=== PATIENT | female | born 1990 | race Caucasian/White ===

== ENCOUNTER 2016-10-28 14:17 | Emergency (ER) | payer SELFPAY ==
[~2016-10-28] VITALS: Ht 170.2 cm; Wt 56.0 kg
[~2016-10-28 14:17] MED LIST: AMIT25TA PO; DICY10CA53 PO; ONDA4TAB10 PO; OXYC-302 PO; PROM25TA10 PO; PROM50SU6 PO; TRAM50TA2 PO
[2016-10-28] MEDS ORDERED: SODIUM CHLORIDE FLUSH 10ML SYR IVF ONE (15:30)
[2016-10-28] MEDS ORDERED: ONDANSETRON 2MG/ML, 2ML IVPush ONE (15:30)
[2016-10-28] MEDS ORDERED: SODIUM CHLORIDE 0.9% 1,000ML IVBOLUS ONE (15:30)
[2016-10-28] MEDS ORDERED: HYDROmorphone 1 MG/ML, 1ML ONE ×2 (15:47→17:06)
[2016-10-28] MEDS ORDERED: ONDANSETRON 2MG/ML, 2ML ONE (15:47)
[2016-10-28 15:56] LABS: HEMOGLOBIN 13.6 g/dL (11.7-16.4)
[2016-10-28] MEDS: HYDROmorphone 1 MG/ML, 1ML IVPush PRN ×2 (16:05→17:12)
[2016-10-28 16:11] LABS: ASPARTATE AMINO TRANSFERASE 9 U/L (15-37); BLOOD UREA NITROGEN 5 mg/dL (7-18)
[2016-10-28 16:36] LABS: PATH.CAST-FLAG NOT PRESENT; SPERM-FLAG NOT PRESENT; SRC-FLAG NOT PRESENT; XTAL-FLAG NOT PRESENT; YLC-FLAG NOT PRESENT
[2016-10-28] MEDS ORDERED: OMNIPAQUE 350 MG/ML, 100ML BOTTLE ONE (16:51)
[2016-10-28 17:12] LABS: HCG UR OBC PASS
[2016-10-28] MEDS ORDERED: METHYLNALTREXONE 12 MG/0.6 ML SQ ONE (17:30)
[2016-10-28] MEDS ORDERED: DIAZEPAM 5 MG/ML, 2ML IV ONE (17:30)
[2016-10-28] MEDS ORDERED: METOCLOPRAMIDE 5 MG/ML, 2ML ONE (17:42)
[2016-10-28] MEDS ORDERED: METOCLOPRAMIDE 5 MG/ML, 2ML IVPush ONE (18:00)
[2016-10-28] MEDS ORDERED: DIAZEPAM 5 MG/ML, 2ML ONE (19:03)
[2016-10-28 19:35] VITALS: BP 99/59
== END 2016-10-28 19:37 | disposition home or self-care (01) ==
LOC: ED 14:51
DX: K59.00 Constipation, unspecified (principal); R10.84 Generalized abdominal pain; Z90.49 Acquired absence of other specified parts of digestive tract; Z88.6 Allergy status to analgesic agent; Z88.8 Allergy status to other drugs, medicaments and biological substances
CPT/HCPCS: 36415; 74177; 80053; 81001; 81025; 85025; 87086; 96361; 96372; 96374; 96375; 96376; 99285; J1170; J2405; J2765; J3360; J7030; Q9967

== ENCOUNTER 2016-11-20 14:28 | Emergency (ER) | payer MEDICAID ==
[~2016-11-20] VITALS: Ht 165.1 cm; Wt 51.7 kg
[~2016-11-20 14:28] MED LIST changes: +GABA800T2 PO; +HYOS0.127 PO; +NORT50CA PO
[2016-11-20] MEDS ORDERED: KETOROLAC 30 MG/1 ML IVPush ONE (15:30)
[2016-11-20] MEDS ORDERED: SODIUM CHLORIDE 0.9% 1,000ML IVBOLUS ONE (15:30)
[2016-11-20] MEDS ORDERED: DIAZEPAM 5 MG/ML, 2ML IV ONE (15:30)
[2016-11-20] MEDS ORDERED: SODIUM CHLORIDE FLUSH 10ML SYR IVF ONE (15:30)
[2016-11-20] MEDS ORDERED: KETOROLAC 30 MG/1 ML ONE (15:32)
[2016-11-20] MEDS ORDERED: DIAZEPAM 5 MG/ML, 2ML ONE (15:32)
[2016-11-20 15:50] LABS: ASPARTATE AMINO TRANSFERASE 16 U/L (15-37); BLOOD UREA NITROGEN 10 mg/dL (7-18)
[2016-11-20 17:19] VITALS: BP 98/63
== END 2016-11-20 17:22 | disposition home or self-care (01) ==
LOC: ED 15:02
DX: R10.84 Generalized abdominal pain (principal); G89.29 Other chronic pain; K59.00 Constipation, unspecified; Z90.49 Acquired absence of other specified parts of digestive tract
CPT/HCPCS: 36415; 74020; 80053; 83605; 83690; 85025; 96361; 96374; 96375; 99285; J1885; J3360; J7030

== ENCOUNTER → 2016-12-16 | Outpatient (CLI) | payer MEDICAID | END | disposition home or self-care (01) | LOC: CFH 08:24 | PROVIDERS: ATTEND Internal Medicine Gastroenterology | DX: R10.11 Right upper quadrant pain (principal); R10.13 Epigastric pain; Z90.49 Acquired absence of other specified parts of digestive tract | CPT/HCPCS: 93975 ==

== ENCOUNTER 2017-01-17 19:01 | Emergency (ER) | payer MEDICAID ==
[~2017-01-17] VITALS: Ht 160 cm; Wt 56.4 kg
[2017-01-17] MEDS ORDERED: PANTOPRAZOLE 40 MG IV IVPush ONE (20:00)
[2017-01-17] MEDS ORDERED: METOCLOPRAMIDE 5 MG/ML, 2ML IVPush ONE (20:00)
[2017-01-17] MEDS ORDERED: SODIUM CHLORIDE 0.9% 1,000ML IVBOLUS ONE ×2 (20:00→22:30)
[2017-01-17] MEDS ORDERED: FAMOTIDINE 20 MG/2 ML IVP ONE (20:00)
[2017-01-17] MEDS ORDERED: HYDROmorphone 1 MG/ML, 1ML IVPush ONE (20:00)
[2017-01-17] MEDS ORDERED: SODIUM CHLORIDE FLUSH 10ML SYR IVF ONE (20:00)
[2017-01-17] MEDS ORDERED: HYDROmorphone 1 MG/ML, 1ML ONE (20:05)
[2017-01-17] MEDS ORDERED: METOCLOPRAMIDE 5 MG/ML, 2ML ONE (20:06)
[2017-01-17] MEDS ORDERED: FAMOTIDINE 20 MG/2 ML ONE (20:06)
[2017-01-17] MEDS ORDERED: PANTOPRAZOLE 40 MG IV ONE (20:06)
[2017-01-17 20:27] LABS: ASPARTATE AMINO TRANSFERASE 40 U/L (15-37); BLOOD UREA NITROGEN 9 mg/dL (7-18)
[2017-01-17 21:53] LABS: HCG UR OBC PASS
[2017-01-17] MEDS ORDERED: ONDANSETRON 2MG/ML, 2ML ONE (23:55)
[2017-01-18] MEDS ORDERED: ONDANSETRON 2MG/ML, 2ML IVPush ONE
[2017-01-18 00:06] VITALS: BP 105/65
== END 2017-01-18 01:19 | disposition home or self-care (01) ==
LOC: ED 21:40
DX: R10.84 Generalized abdominal pain (principal); G89.29 Other chronic pain; R19.5 Other fecal abnormalities; R11.2 Nausea with vomiting, unspecified; Z90.49 Acquired absence of other specified parts of digestive tract; Z88.6 Allergy status to analgesic agent; Z88.8 Allergy status to other drugs, medicaments and biological substances
CPT/HCPCS: 36415; 80053; 81001; 81025; 83690; 85025; 85610; 85730; 87086; 96361; 96374; 96375; 99285; C9113; J1170; J2405; J2765; J7030; S0028

== ENCOUNTER 2017-03-12 16:04 | Emergency (ER) | payer MEDICAID ==
[~2017-03-12] VITALS: Ht 160 cm; Wt 55.4 kg
[2017-03-12 16:09] VITALS: BP 105/74
== END 2017-03-12 17:35 | disposition home or self-care (01) ==
LOC: ED 16:46
DX: S80.01XA Contusion of right knee, initial encounter (principal); Z90.49 Acquired absence of other specified parts of digestive tract; Z88.5 Allergy status to narcotic agent; W22.09XA Striking against other stationary object, initial encounter; Y93.89 Activity, other specified; Y92.89 Other specified places as the place of occurrence of the external cause; Y99.8 Other external cause status
CPT/HCPCS: 99284

== ENCOUNTER → 2018-03-04 | Outpatient (CLI) | payer MEDICAID ==
[~2018-03-04] MED LIST changes: +HYOS0.1268 PO; -HYOS0.127 PO; +SINCALIDE (KINEVAC) 5 MCG ONE
== END | disposition home or self-care (01) ==
LOC: PETCFH 08:12
PROVIDERS: ATTEND Internal Medicine Gastroenterology
DX: K83.4 Spasm of sphincter of Oddi (principal); Z88.5 Allergy status to narcotic agent; Z88.8 Allergy status to other drugs, medicaments and biological substances
CPT/HCPCS: 78226; A9537; J2805

== ENCOUNTER 2018-04-18 09:23 | Emergency (ER) | payer MEDICAID ==
[~2018-04-18] VITALS: Ht 160 cm; Wt 71.4 kg
[~2018-04-18 09:23] MED LIST changes: +PREG75CA PO; -SINCALIDE (KINEVAC) 5 MCG ONE
[2018-04-18 09:30] VITALS: BP 99/69
== END 2018-04-18 10:20 | disposition home or self-care (01) ==
LOC: ED 09:55
DX: H65.03 Acute serous otitis media, bilateral (principal); J06.9 Acute upper respiratory infection, unspecified; Z90.89 Acquired absence of other organs; Z90.49 Acquired absence of other specified parts of digestive tract
CPT/HCPCS: 99283

== ENCOUNTER 2018-05-06 15:02 | Emergency (ER) | payer MEDICAID, OTHER ==
[~2018-05-06] VITALS: Ht 160 cm; Wt 69.0 kg
[~2018-05-06 15:02] MED LIST changes: -NORT50CA PO; +NORT50CA52 PO
[2018-05-06 15:17] VITALS: BP 108/70
[2018-05-06] MEDS ORDERED: PREG200C PO (15:24)
[2018-05-06] MEDS ORDERED: ACETAMINOPHEN 500 MG TABLET ONE (15:45)
[2018-05-06] MEDS ORDERED: ACETAMINOPHEN 500 MG TABLET PO ONE (16:00)
== END 2018-05-06 16:33 | disposition home or self-care (01) ==
LOC: ED 16:18
DX: S50.01XA Contusion of right elbow, initial encounter (principal); Z88.5 Allergy status to narcotic agent; Z88.8 Allergy status to other drugs, medicaments and biological substances; Z90.49 Acquired absence of other specified parts of digestive tract; X58.XXXA Exposure to other specified factors, initial encounter; Y93.89 Activity, other specified; Y99.8 Other external cause status; Y92.009 Unspecified place in unspecified non-institutional (private) residence as the place of occurrence of the external cause
CPT/HCPCS: 99284

== ENCOUNTER 2018-05-27 09:53 | Emergency (ER) | payer OTHER ==
[~2018-05-27] VITALS: Ht 160 cm; Wt 69.7 kg
[~2018-05-27 09:53] MED LIST changes: +PREG200C PO
[2018-05-27 10:04] VITALS: BP 100/69
== END 2018-05-27 10:39 | disposition home or self-care (01) ==
LOC: ED 10:20
DX: K04.7 Periapical abscess without sinus (principal)
CPT/HCPCS: 99283

== ENCOUNTER 2018-10-12 16:39 | Emergency (ER) | payer MEDICAID ==
[~2018-10-12] VITALS: Ht 165.1 cm; Wt 70.2 kg
[~2018-10-12 16:39] MED LIST changes: -GABA800T2 PO; +GABA800T5 PO
[2018-10-12 16:40] VITALS: BP 113/81
[2018-10-12] MEDS ORDERED: ALBUTEROL/IPRATROPIUM 2.5MG/0.5MG, 3 ML NPPB ONE (17:30)
[2018-10-12] MEDS ORDERED: ALBUTEROL/IPRATROPIUM 2.5MG/0.5MG, 3 ML ONE (17:30)
--- NOTE | 2018-10-12 17:41 | NUR ---
COUGH 2 WEEKS. RT AT BEDSIDE GIVING TX. MEDICATED PER ORDERS
== END 2018-10-12 18:02 | disposition home or self-care (01) ==
LOC: ED 17:45
DX: J06.9 Acute upper respiratory infection, unspecified (principal)
CPT/HCPCS: 71046; 94640; 99283; J7512; J7620

== ENCOUNTER 2018-10-23 12:50 | Emergency (ER) | payer MEDICAID ==
[~2018-10-23] VITALS: Ht 165.1 cm; Wt 68.7 kg
[2018-10-23] MEDS ORDERED: SODIUM CHLORIDE FLUSH 10ML SYR IVF ONE (13:30)
--- NOTE | 2018-10-23 13:38 | NUR ---
PT STATES FIVE DAYS AGO SHE STARTED TO NOT BE ABLE TO HAVE SENSATION RIGHT ANKLE. PT ATTRIUBTES IT TO MAYBE HER SPINAL CORD STIMULATOR IS DISLODGED. PT HAS TOM FOR FOUR DAYS.
[2018-10-23 14:27] LABS: BASOPHILS # (AUTO) 0.02 x10^3/uL (0-0.1); BASOPHILS % (AUTO) 0 % (0-1); EOSINOPHILS # (AUTO) 0.22 x10^3/uL (0-0.4); EOSINOPHILS % (AUTO) 3 % (1-7); LYMPHOCYTES # (AUTO) 2.41 x10^3/uL (1-3.4); LYMPHOCYTES % (AUTO) 29 % (22-44); MD NO; MEAN CORPUSCULAR HEMOGLOBIN 29.6 pg (27.0-34.8); MEAN CORPUSCULAR HGB CONC 33.2 g/dL (32.4-35.8); MEAN PLATELET VOLUME 8.3 fL (7.4-10.4); MONOCYTES % (AUTO) 6 % (2-9); NEUTROPHILS # (AUTO) 5.04 x10^3/uL (1.8-6.8); NEUTROPHILS % (AUTO) 62 % (42-75); PLATELET COUNT 405 x10^3/uL (130-400); RED BLOOD COUNT 4.95 x10^6/uL (3.82-5.3); RED CELL DISTRIBUTION WIDTH 13.8 % (9.6-15.2)
[2018-10-23] MEDS ORDERED: HYDROmorphone 1 MG/ML, 1ML AMP IVPush ONE (14:30)
[2018-10-23] MEDS ORDERED: KETOROLAC 30 MG/1 ML IVPush ONE (14:30)
[2018-10-23] MEDS ORDERED: METOCLOPRAMIDE 5 MG/ML, 2ML IVPush ONE (14:30)
[2018-10-23 14:34] LABS: ALBUMIN 3.7 g/dL (3.4-5.0); ANION GAP 6 mmol/L (5-15); CALCIUM 9.2 mg/dL (8.5-10.1); CHLORIDE 107 mmol/L (98-107); CREATININE 0.67 mg/dL (0.55-1.02)
[2018-10-23] MEDS ORDERED: HYDROmorphone 1 MG/ML, 1ML AMP ONE (14:45)
[2018-10-23] MEDS ORDERED: METOCLOPRAMIDE 5 MG/ML, 2ML ONE (14:45)
--- NOTE | 2018-10-23 14:55 | NUR ---
MEDICATED FOR TOM
[2018-10-23] MEDS ORDERED: SODIUM CHLORIDE 0.9%, 500ML IVBOLUS ONE (15:00)
[2018-10-23] MEDS ORDERED: KETOROLAC 30 MG/1 ML ONE (15:15)
[2018-10-23 15:41] VITALS: BP 98/59
--- NOTE | 2018-10-23 15:42 | NUR ---
AMBULATED TO BATHROOM WITHOUT ASSISTANCE, STEADY GAIT
== END 2018-10-23 16:09 | disposition home or self-care (01) ==
LOC: ED 13:20
DX: R51 Headache (principal); Z90.89 Acquired absence of other organs; Z90.49 Acquired absence of other specified parts of digestive tract; Z88.8 Allergy status to other drugs, medicaments and biological substances; Z88.1 Allergy status to other antibiotic agents; Z88.5 Allergy status to narcotic agent
CPT/HCPCS: 36415; 72072; 72110; 80048; 82040; 84703; 85025; 96374; 96375; 99284; J1170; J1885; J2765; J7040

== ENCOUNTER 2019-05-23 10:27 | Emergency (ER) | payer MEDICAID ==
[~2019-05-23] VITALS: Ht 160 cm; Wt 88.0 kg
[~2019-05-23 10:27] MED LIST changes: +CYCL-259 PO; +OXYC-307 PO
[2019-05-23 10:30] VITALS: BP 119/75
[2019-05-23] MEDS ORDERED: LIDOCAINE-MPF 1%, 5ML ONE ×2 (10:55→11:20)
[2019-05-23] MEDS ORDERED: LIDOCAINE-MPF 1%, 5ML INFIL ONE (12:00)
[2019-05-23] MEDS ORDERED: NEOSPORIN OINT. PKT 1 PACKET ONE (12:06)
--- NOTE | 2019-05-23 12:11 | NUR ---
AFTER REMOVAL OF TOE NAIL BY SHELLY DORADO AT BEDSIDE PLACING DRESSING
== END 2019-05-23 12:49 | disposition home or self-care (01) ==
LOC: ED 12:15
DX: L60.0 Ingrowing nail (principal)
CPT/HCPCS: 11730; 99283

== ENCOUNTER 2019-08-30 08:55 | Emergency (ER) | payer MEDICAID ==
[~2019-08-30] VITALS: Ht 160 cm; Wt 93.8 kg
[2019-08-30 08:58] VITALS: BP 119/74
== END 2019-08-30 09:56 | disposition home or self-care (01) ==
LOC: ED 09:30
DX: K02.9 Dental caries, unspecified (principal)
CPT/HCPCS: 99283

== ENCOUNTER 2019-09-20 10:06 | Emergency (ER) | payer MEDICAID ==
[~2019-09-20] VITALS: Ht 162.6 cm; Wt 90.3 kg
--- NOTE | 2019-09-20 11:36 | NUR ---
NO ANSWER IN LOBBY
[2019-09-20] MEDS ORDERED: KETOROLAC 30 MG/1 ML ONE (12:29)
[2019-09-20] MEDS ORDERED: METHOCARBAMOL 750 MG TABLET ONE (12:29)
[2019-09-20] MEDS ORDERED: OXYcodone/APAP 5/325MG TABLET PO ONE (12:30)
[2019-09-20] MEDS ORDERED: OXYcodone/APAP 5/325MG TABLET ONE (12:30)
[2019-09-20] MEDS ORDERED: METHOCARBAMOL 750 MG TABLET PO ONE (12:30)
[2019-09-20] MEDS ORDERED: KETOROLAC 30 MG/1 ML IM ONE (12:30)
[2019-09-20 13:28] VITALS: BP 111/72
--- NOTE | 2019-09-20 13:28 | NUR ---
REPORT TAKEN FROM WANDA ENGLAND. PT REPORTS HEADACHE AND DIZZINESS RESOLVED. PT A&O, RESPS EVEN AND UNLABORED, NEURO INTACT. PT INSTRUCTED NOT TO DRIVE D/T MEDS GIVEN, MOTHER WITH PT TO DRIVE HOME. PT GIVEN DC INSTRUCTIONS AND SCRIPT, EDUCATED REGARIDNG RX FOR ROBAXAN AND NAPROXEN. PT AMB TO DC DESK WITH STEADY GAIT, ALL QUESTIONS ANSWERED.
== END 2019-09-20 13:37 | disposition home or self-care (01) ==
LOC: ED 13:31
DX: S06.0X0A Concussion without loss of consciousness, initial encounter (principal); S39.012A Strain of muscle, fascia and tendon of lower back, initial encounter; S29.012A Strain of muscle and tendon of back wall of thorax, initial encounter; S50.01XA Contusion of right elbow, initial encounter; S09.8XXA Other specified injuries of head, initial encounter; W01.0XXA Fall on same level from slipping, tripping and stumbling without subsequent striking against object, initial encounter; Y93.89 Activity, other specified; Y92.59 Other trade areas as the place of occurrence of the external cause; Y99.8 Other external cause status
CPT/HCPCS: 70450; 72072; 72110; 73080; 96372; 99284; J1885

== ENCOUNTER 2019-09-28 09:44 | Emergency (ER) | payer MEDICAID ==
[~2019-09-28] VITALS: Ht 160 cm; Wt 90.8 kg
--- NOTE | 2019-09-28 10:03 | NUR ---
HUMAN RESOURCE PROFESSIONAL: PT AMBULATORY TO ROOM FROM LOBBY
--- NOTE | 2019-09-28 10:10 | NUR ---
THIS IS A 29 YO F W/ C/O TOM AND BLURRED VISION AFTER FALL X1 WEEK AGO. PT REPORTS SENSITIVITY TO LIGHT, DENIES N/V. VS STABLE. PT AMBULATED TO THE ROOM W/ A STEADY GAIT. PT REPORTS DRIVING HERSELF HERE. PT IS RESTING ON [employer] W/ CALL LIGHT IN REACH. PROVIDED BLANKET AND DARK ROOM FOR COMFORT. AWAITING ED EVAL.
--- NOTE | 2019-09-28 10:25 | NUR ---
OPAL DORADO IN ROOM.
--- NOTE | 2019-09-28 11:08 | NUR ---
PT TO CT.
--- NOTE | 2019-09-28 11:22 | NUR ---
ALL TESTS RESULTED. PT IS UP FOR RECHECK AT THIS TIME.
--- NOTE | 2019-09-28 11:28 | NUR ---
TECH IN ROOM TO DO VA'S.
[2019-09-28 11:44] VITALS: BP 97/64
--- NOTE | 2019-09-28 11:45 | NUR ---
ALL TESTS RESULTED. PT IS UP FOR RECHECK AT THIS TIME.
--- NOTE | 2019-09-28 12:06 | NUR ---
Patient given discharge instructions and they have confirmed that they understand the instructions. Patient ambulatory with steady gait.
== END 2019-09-28 12:07 | disposition home or self-care (01) ==
LOC: ED 12:01
DX: F07.81 Postconcussional syndrome (principal); R51 Headache; R42 Dizziness and giddiness
CPT/HCPCS: 70450; 99284

== ENCOUNTER 2019-10-05 08:49 | Emergency (ER) | payer MEDICAID ==
[~2019-10-05] VITALS: Ht 157.5 cm; Wt 89.0 kg
--- NOTE | 2019-10-05 09:48 | NUR ---
DETECTIVE: PT TO ROOM FROM LOBBY
[2019-10-05 10:09] VITALS: BP 109/76
[2019-10-05] MEDS ORDERED: DOXE100C PO (10:13)
[2019-10-05] MEDS ORDERED: PREG200C PO (10:13)
[2019-10-05] MEDS ORDERED: PREG300C PO (10:13)
[2019-10-05] MEDS ORDERED: TIZA4TAB2 PO (10:13)
[2019-10-05] MEDS ORDERED: CYCL-259 PO (10:13)
== END 2019-10-05 11:03 | disposition home or self-care (01) ==
LOC: ED 10:45
DX: S06.0X0A Concussion without loss of consciousness, initial encounter (principal); G44.52 New daily persistent headache (NDPH); Z90.49 Acquired absence of other specified parts of digestive tract; Z90.89 Acquired absence of other organs; W18.30XA Fall on same level, unspecified, initial encounter; Y93.89 Activity, other specified; Y92.89 Other specified places as the place of occurrence of the external cause; Y99.8 Other external cause status
CPT/HCPCS: 99283

== ENCOUNTER 2019-12-08 14:59 | Emergency (ER) | payer MEDICAID ==
[~2019-12-08] VITALS: Ht 160 cm; Wt 88.8 kg
[~2019-12-08 14:59] MED LIST changes: +DOXE100C PO; +PREG300C PO; +TIZA4TAB2 PO
[2019-12-08 15:08] VITALS: BP 124/85
== END 2019-12-08 16:13 | disposition home or self-care (01) ==
LOC: ED 16:07
DX: L03.031 Cellulitis of right toe (principal); L60.0 Ingrowing nail; M79.671 Pain in right foot
CPT/HCPCS: 99283

== ENCOUNTER 2019-12-24 10:26 | Emergency (ER) | payer MEDICAID ==
[~2019-12-24] VITALS: Ht 160 cm; Wt 88.7 kg
[2019-12-24] MEDS ORDERED: SODIUM CHLORIDE 0.9% 1,000ML IVBOLUS ONE ×2 (11:00→13:00)
--- NOTE | 2019-12-24 11:10 | NUR ---
PT REPORTS ANURIC X3 DAYS. BLADDER SCANNER REVEALED 150 ML. MINI CATH COMPLETED. PT TOLERATED PROCEDURE WELL. UA WALKED TO LAB.
--- NOTE | 2019-12-24 11:26 | NUR ---
PER ESTRADA GARVEY PLAN TO HOLD IVF AT THIS TIME UNTIL LABS RETURN. PT SITTING UP IN BED, NAD NOTED AT THIS TIME. RESPIRATIONS EVEN AND UNLABORED ON RA.
[2019-12-24 11:30] LABS: BASOPHILS # (AUTO) 0.07 x10^3/uL (0-0.1); BASOPHILS % (AUTO) 1 % (0-1); EOSINOPHILS # (AUTO) 0.31 x10^3/uL (0-0.4); EOSINOPHILS % (AUTO) 4 % (1-7); LYMPHOCYTES # (AUTO) 2.15 x10^3/uL (1-3.4); LYMPHOCYTES % (AUTO) 25 % (22-44); MD NO; MEAN CORPUSCULAR HEMOGLOBIN 30.1 pg (27.0-34.8); MEAN CORPUSCULAR HGB CONC 33.3 g/dL (32.4-35.8); MEAN CORPUSCULAR VOLUME 90.3 fL (80-100); MEAN PLATELET VOLUME 7.6 fL (7.4-10.4); MONOCYTES % (AUTO) 6 % (2-9); NEUTROPHILS # (AUTO) 5.51 x10^3/uL (1.8-6.8); NEUTROPHILS % (AUTO) 65 % (42-75); PLATELET COUNT 359 x10^3/uL (130-400); RED BLOOD COUNT 4.44 x10^6/uL (3.82-5.3)
[2019-12-24 11:31] LABS: MICROSCOPIC NOT IND
[2019-12-24 11:42] LABS: ALANINE AMINOTRANSFERASE 28 U/L (12-78); ALBUMIN 3.3 g/dL (3.4-5.0); ANION GAP 6 mmol/L (5-15); CHLORIDE 104 mmol/L (98-107)
[2019-12-24 11:44] LABS: ALKALINE PHOSPHATASE 131 U/L (45-117); BILIRUBIN,TOTAL 0.3 mg/dL (0.2-1.0); TOTAL PROTEIN 8.2 g/dL (6.4-8.2)
--- NOTE | 2019-12-24 11:50 | NUR ---
REPORT TO WANDA AMEZCUA
--- NOTE | 2019-12-24 12:29 | NUR ---
PT PLACED ON MONITOR, LAW PT TO HAVE TRANSVAGINAL US AND PELVIC EXAM.
[2019-12-24 13:51] LABS: CLUE CELLS NONE SEEN (NONE SEEN); WET PREP WBCS NONE SEEN (FEW)
[2019-12-24] MEDS ORDERED: CEFTRIAXONE 1,000 MG IM ONE (14:00)
[2019-12-24] MEDS ORDERED: AZITHROMYCIN 500 MG TABLET PO ONE (14:00)
[2019-12-24] MEDS ORDERED: CEFTRIAXONE PMX 1GM/50ML 50 ML ONE (14:43)
[2019-12-24] MEDS ORDERED: AZITHROMYCIN 500 MG TABLET ONE (14:43)
[2019-12-24 14:49] VITALS: BP 117/81
--- NOTE | 2019-12-24 14:51 | NUR ---
ESTRADA Felix not wanting second liter, 1 liter of ns only and rocephin to be IV as well.
[2019-12-24] MEDS ORDERED: CEFTRIAXONE PMX 1GM/50ML 50 ML IV ONE (15:00)
--- NOTE | 2019-12-24 15:31 | NUR ---
Patient/Caregiver given discharge instructions and they have confirmed that they understand the instructions. Patient ambulatory with steady gait.
== END 2019-12-24 15:33 | disposition home or self-care (01) ==
LOC: ED 11:21
DX: N73.0 Acute parametritis and pelvic cellulitis (principal); M54.5 Low back pain; R30.0 Dysuria; Z90.89 Acquired absence of other organs; Z90.49 Acquired absence of other specified parts of digestive tract
CPT/HCPCS: 36415; 76770; 76830; 80053; 81003; 83690; 84703; 85025; 87210; 87491; 87591; 87808; 96374; 99285; J0696; J7030

== ENCOUNTER 2020-01-10 08:56 | Emergency (ER) | payer MEDICAID ==
[~2020-01-10] VITALS: Ht 160 cm; Wt 90.7 kg
[2020-01-10] MEDS ORDERED: ONDANSETRON 2MG/ML, 2ML IVPush ONE (09:30)
[2020-01-10] MEDS ORDERED: SODIUM CHLORIDE 0.9% 1,000ML IVBOLUS ONE (09:30)
[2020-01-10] MEDS ORDERED: KETOROLAC 30 MG/1 ML IVPush ONE (09:30)
[2020-01-10] MEDS ORDERED: KETOROLAC 30 MG/1 ML ONE ×2 (09:33→10:43)
[2020-01-10] MEDS ORDERED: ONDANSETRON 2MG/ML, 2ML ONE (09:33)
[2020-01-10 09:42] LABS: BASOPHILS # (AUTO) 0.03 x10^3/uL (0-0.1); BASOPHILS % (AUTO) 1 % (0-1); EOSINOPHILS # (AUTO) 0.22 x10^3/uL (0-0.4); EOSINOPHILS % (AUTO) 4 % (1-7); LYMPHOCYTES # (AUTO) 1.43 x10^3/uL (1-3.4); LYMPHOCYTES % (AUTO) 25 % (22-44); MD NO; MEAN CORPUSCULAR HEMOGLOBIN 30.4 pg (27.0-34.8); MEAN CORPUSCULAR HGB CONC 33.4 g/dL (32.4-35.8); MEAN PLATELET VOLUME 7.6 fL (7.4-10.4); MONOCYTES # (AUTO) 0.41 x10^3/uL (0.2-0.8); MONOCYTES % (AUTO) 7 % (2-9); NEUTROPHILS % (AUTO) 63 % (42-75); PLATELET COUNT 327 x10^3/uL (130-400); RED BLOOD COUNT 4.28 x10^6/uL (3.82-5.3); RED CELL DISTRIBUTION WIDTH 14.3 % (9.6-15.2)
[2020-01-10 09:55] LABS: ALANINE AMINOTRANSFERASE 23 U/L (12-78); ANION GAP 7 mmol/L (5-15); CALCIUM 8.5 mg/dL (8.5-10.1); CHLORIDE 107 mmol/L (98-107); CREATININE 0.76 mg/dL (0.55-1.02)
[2020-01-10 09:59] LABS: ALKALINE PHOSPHATASE 114 U/L (45-117); BILIRUBIN,TOTAL 0.3 mg/dL (0.2-1.0); TOTAL PROTEIN 7.8 g/dL (6.4-8.2)
[2020-01-10 10:12] LABS: MICROSCOPIC NOT IND
--- NOTE | 2020-01-10 10:49 | NUR ---
PT MEDICATED PER MAR. VSS, NO OTHER NEEDS AT THIS TIME
[2020-01-10] MEDS ORDERED: KETOROLAC 30 MG/1 ML IM ONE (11:00)
[2020-01-10] MEDS ORDERED: PROMETHAZINE 25 MG/ML, 1ML IM ONE (11:00)
[2020-01-10 12:00] VITALS: BP 131/85
== END 2020-01-10 12:07 | disposition home or self-care (01) ==
LOC: ED 09:16
DX: R10.31 Right lower quadrant pain (principal); R00.0 Tachycardia, unspecified; R11.0 Nausea; Z90.49 Acquired absence of other specified parts of digestive tract
CPT/HCPCS: 36415; 80053; 81003; 84702; 85025; 87808; 93005; 96372; 99284; J1885

== ENCOUNTER 2020-01-17 08:43 | Emergency (ER) | payer MEDICAID ==
[~2020-01-17] VITALS: Ht 160 cm; Wt 87.8 kg
--- NOTE | 2020-01-17 09:23 | NUR ---
PT IN BR TO PROVIDE UA.
[2020-01-17] MEDS ORDERED: KETOROLAC 30 MG/1 ML IM ONE (10:00)
[2020-01-17] MEDS ORDERED: KETOROLAC 60 MG/2 ML ONE (10:03)
[2020-01-17] MEDS ORDERED: PHENAZOPYRIDINE 200 MG TABLET ONE (10:30)
[2020-01-17] MEDS ORDERED: PHENAZOPYRIDINE 200 MG TABLET PO ONE (10:30)
[2020-01-17 10:34] VITALS: BP 121/69
== END 2020-01-17 10:35 | disposition home or self-care (01) ==
LOC: ED 09:11
DX: R10.30 Lower abdominal pain, unspecified (principal); G89.29 Other chronic pain; Z90.49 Acquired absence of other specified parts of digestive tract
CPT/HCPCS: 96372; 99284; J1885

== ENCOUNTER 2020-03-18 17:08 | Emergency (ER) | payer MEDICAID ==
[~2020-03-18] VITALS: Ht 152.4 cm; Wt 83.6 kg
[2020-03-18 18:18] VITALS: BP 127/65
== END 2020-03-18 18:30 | disposition home or self-care (01) ==
LOC: ED 18:27
DX: L03.031 Cellulitis of right toe (principal); L60.0 Ingrowing nail
CPT/HCPCS: 99283

== ENCOUNTER 2020-04-18 18:34 | Emergency (ER) | payer MEDICAID ==
[~2020-04-18] VITALS: Ht 160 cm; Wt 83.2 kg
--- NOTE | 2020-04-18 20:12 | NUR ---
PT ROOM AT THIS TIME.
[2020-04-18 20:15] VITALS: BP 114/77
--- NOTE | 2020-04-18 20:16 | NUR ---
THIS IS A 29 YO F W/ C/O RT FOOT PAIN X3 DAYS. PT REPORTS HX OF CRPS. PT STATES SHE HAS APPT W/ PAIN MANAGEMENT TOMORROW. BLAYNE JUDD. AWAITING ED EVAL.
--- NOTE | 2020-04-18 21:17 | NUR ---
PT REFUSED CRUTCHES, STATES SHE HAS SOME AT HOME. VERBALIZED UNDERSTANDING OF DC INSTRUCTIONS, AMBULATORY W/ A STEADY GAIT. BLAYNE.
[2020-04-23] MEDS ORDERED: GABA800T5 PO (10:10)
== END 2020-04-18 21:19 | disposition home or self-care (01) ==
LOC: ED 20:34
DX: S93.491A Sprain of other ligament of right ankle, initial encounter (principal); L60.0 Ingrowing nail; Z90.89 Acquired absence of other organs; Z90.49 Acquired absence of other specified parts of digestive tract; X50.0XXA Overexertion from strenuous movement or load, initial encounter; Y93.89 Activity, other specified; Y92.89 Other specified places as the place of occurrence of the external cause; Y99.8 Other external cause status
CPT/HCPCS: 99283

== ENCOUNTER 2020-05-25 12:52 | Emergency (ER) | payer MEDICAID ==
[~2020-05-25] VITALS: Ht 165.1 cm; Wt 87.1 kg
--- NOTE | 2020-05-25 13:07 | NUR ---
OYSTER BUYER: PT TO ROOM FROM RADIOLOGY
--- NOTE | 2020-05-25 13:26 | NUR ---
ASSUMED CARE OF PATIENT. PATIENT REPORTS SHE FELT A POP IN HER RIGHT ANKLE WHEN SHE WAS PUTTING HER SHOE ON. VS STABLE. ICE PACK GIVEN FOR RIGHT ANKLE. CALL LIGHT IN PLACE. FAMILY AT BEDSIDE. NO ACUTE DISTRESS NOTED. WILL CONTINUE TO MONITOR.
[2020-05-25 14:01] VITALS: BP 98/59
== END 2020-05-25 14:03 | disposition home or self-care (01) ==
LOC: ED 13:49
DX: G89.11 Acute pain due to trauma (principal); M25.571 Pain in right ankle and joints of right foot; Z88.6 Allergy status to analgesic agent; Z88.8 Allergy status to other drugs, medicaments and biological substances
CPT/HCPCS: 99284

== ENCOUNTER 2020-09-04 14:43 | Emergency (ER) | payer MEDICAID ==
[~2020-09-04] VITALS: Ht 165.1 cm; Wt 88.2 kg
[~2020-09-04 14:43] MED LIST changes: -CYCL-259 PO; +CYCL10TA2 PO; -OXYC-302 PO; -OXYC-307 PO; +OXYC-380 PO; +OXYC1TAB14 PO
[2020-09-04 15:00] VITALS: BP 126/81
--- NOTE | 2020-09-04 16:50 | NUR ---
Pt to room at 1640.
[2020-09-04] MEDS ORDERED: LAMO150T3 PO (17:05)
[2020-09-04] MEDS ORDERED: DULO20CA45 PO (17:05)
[2020-09-04] MEDS ORDERED: DULO60CA7 PO (17:05)
[2020-09-04] MEDS ORDERED: TIZA4CAP PO (17:05)
[2020-09-04] MEDS ORDERED: HYDR-1067 PO (17:05)
[2020-09-04] MEDS ORDERED: HYDROcodone/APAP 5/325 TABLET PO ONE (18:00)
== END 2020-09-04 18:03 | disposition home or self-care (01) ==
LOC: ED 17:30
DX: S60.212A Contusion of left wrist, initial encounter (principal); Z88.9 Allergy status to unspecified drugs, medicaments and biological substances; Z90.89 Acquired absence of other organs; Z90.49 Acquired absence of other specified parts of digestive tract; Z79.899 Other long term (current) drug therapy; X58.XXXA Exposure to other specified factors, initial encounter; Y93.89 Activity, other specified; Y92.89 Other specified places as the place of occurrence of the external cause; Y99.8 Other external cause status
CPT/HCPCS: 29125; 99283

== ENCOUNTER 2020-11-29 18:46 | Emergency (ER) | payer MEDICAID ==
[~2020-11-29] VITALS: Ht 165.1 cm; Wt 96.0 kg
[~2020-11-29 18:46] MED LIST changes: +DULO20CA45 PO; +DULO60CA7 PO; +HYDR-2214 PO; +LAMO150T3 PO; +TIZA4CAP PO
[2020-11-29 18:49] VITALS: BP 107/69
[2020-11-29] MEDS ORDERED: DIPH,PERTUSS(ACELL),TET VAC/PF 0.5 ML IM-VACC ONE (20:00)
[2020-11-29] MEDS ORDERED: LIDOCAINE-MPF 1%, 5ML INFIL ONE (20:00)
[2020-11-29] MEDS ORDERED: LIDOCAINE-MPF 1%, 5ML ONE ×2 (20:02→20:32)
[2020-11-29] MEDS ORDERED: NEOSPORIN OINT. PKT 1 PACKET ONE (20:46)
== END 2020-11-29 21:07 | disposition home or self-care (01) ==
LOC: ED 20:19
DX: L03.031 Cellulitis of right toe (principal); L60.0 Ingrowing nail; M79.671 Pain in right foot; Z90.89 Acquired absence of other organs; Z90.49 Acquired absence of other specified parts of digestive tract
CPT/HCPCS: 11730; 90715; 99284